=== PATIENT | female | born 1970 | race Two or more races ===

== ENCOUNTER 2021-07-18 11:38 | Emergency (ER) | payer SELFPAY ==
[~2021-07-18] VITALS: Ht 160 cm; Wt 64.5 kg
--- NOTE | 2021-07-18 12:51 | PHYS DOC ---
Past Medical History Past Medical History: No Pertinent History Past Surgical History: No Surgical History Smoking Status: Never Smoker Alcohol Use: None Drug Use: None General Adult EDM: Chief Complaint: ABDOMINAL PAIN HPI: HPI: Patient is a 51-year-old female who presents today with epigastric pain. Booker gonzales states that over a year she has been having on and off epigastric pain that radiates to her back, she states that she has not had it evaluated by anyone, she said she went to work today and had extreme pain with nausea she said she was unable to vomit, she presents here to the emergency department for further evaluation and management. Patient denies chest pain, shortness of breath, fever chills, dysuria, urinary frequency, vaginal discharge or vaginal bleeding. Patient does state that since Friday she has had diarrhea stools associated with her nausea. Review of Systems: Review of Systems: Constitutional: Denies fever or chills. [] Eyes: Denies change in visual acuity. [] HENT: Denies nasal congestion or sore throat. [] Respiratory: Denies cough or shortness of breath. [] Cardiovascular: Denies chest pain or edema. [] GI: abdominal pain, nausea, diarrhea DENIES vomiting, bloody stools[] : Denies dysuria. [] Musculoskeletal: Denies back pain or joint pain. [] Integument: Denies rash. [] Neurologic: Denies headache, focal weakness or sensory changes. [] Endocrine: Denies polyuria or polydipsia. [] Lymphatic: Denies swollen glands. [] Psychiatric: Denies depression or anxiety. [] Heart Score: C/O Chest Pain: No Risk Factors: Risk Factors: DM, Current or recent (<one month) smoker, HTN, HLP, family history of CAD, obesity. Risk Scores: Score 0 - 3: 2.5% MACE over next 6 weeks - Discharge Home Score 4 - 6: 20.3% MACE over next 6 weeks - Admit for Clinical Observation Score 7 - 10: 72.7% MACE over next 6 weeks - Early Invasive Strategies Current Medications: Current Medications Medications (Trade) Dose Ordered Sig/Mauricio Start Time Stop Time Status Last Admin Dose Admin Famotidine (Pepcid Vial) 20 mg 1X ONCE 07/18/21 12:45 07/18/21 12:46 UNV Ketorolac Tromethamine (Toradol 15mg Vial) 15 mg 1X ONCE 07/18/21 12:45 07/18/21 12:46 UNV Ondansetron HCl (Zofran) 4 mg 1X ONCE 07/18/21 12:45 07/18/21 12:46 UNV Sodium Chloride 1,000 ml @ 999 mls/hr 1X ONCE 07/18/21 12:45 07/18/21 13:45 UNV Allergies: Allergies: Allergies Coded Allergies Type Severity Reaction Last Updated Verified Penicillins Allergy Intermediate unknown 07/18/21 Yes Physical Exam: PE: Constitutional: Well developed, well nourished, no acute distress, non-toxic appearance. [] HENT: Normocephalic, atraumatic, bilateral external ears normal, oropharynx moist, no oral exudates, nose normal. [] Eyes: PERRLA, EOMI, conjunctiva normal, no discharge. [] Neck: Normal range of motion, no tenderness, supple, no stridor. [] Cardiovascular:Heart rate regular rhythm, no murmur [] Lungs & Thorax: Bilateral breath sounds clear to auscultation [] Abdomen: Bowel sounds normal, soft, epigastric tenderness noted with palpation, no pulsatile masses or masses noted Skin: Warm, dry, no erythema, no rash. [] Back: No tenderness, no CVA tenderness. [] Extremities: No tenderness, no cyanosis, no clubbing, ROM intact, no edema. [] Neurologic: Alert and oriented X 3, normal motor function, normal sensory fu nction, no focal deficits noted. [] Psychologic: Affect normal, judgement normal, mood normal. [] Current Patient Data: Labs: Laboratory Tests Test 07/18/21 12:21 07/18/21 12:25 Bedside Urine HCG, Qualitative Hcg negative White Blood Count 5.9 x10^3/uL Red Blood Count 5.26 x10^6/uL Hemoglobin 14.7 g/dL Hematocrit 44.3 % Mean Corpuscular Volume 84 fL Mean Corpuscular Hemoglobin 28 pg Mean Corpuscular Hemoglobin Concent 33 g/dL Red Cell Distribution Width 15.5 % Platelet Count 273 x10^3/uL Neutrophils (%) (Auto) 68 % Lymphocytes (%) (Auto) 19 % Monocytes (%) (Auto) 13 % Eosinophils (%) (Auto) 1 % Basophils (%) (Auto) 0 % Neutrophils # (Auto) 4.0 x10^3/uL Lymphocytes # (Auto) 1.1 x10^3/uL Monocytes # (Auto) 0.7 x10^3/uL Eosinophils # (Auto) 0.1 x10^3/uL Basophils # (Auto) 0.0 x10^3/uL Urine Collection Type Unknown Urine Color (Auto) Light yellow Urine Turbidity Clear Urine pH (Auto) 5.0 Urine Specific Whitmore 1.026 Urine Protein (Auto) Negative mg/dL Urine Glucose (Auto)(UA) Negative mg/dL Urine Ketones (Auto) Negative mg/dL Urine Blood (Auto) Trace Urine Nitrite Negative Urine Bilirubin (Auto) Negative Urine Urobilinogen (Auto) Normal mg/dL Urine Leukocyte Esterase (Auto) Negative Urine RBC Occ /HPF Urine WBC 1-4 /HPF Urine Squamous Epithelial Cells Mod /LPF Urine Bacteria Many /HPF Urine Mucus Marked /LPF Sodium Level 139 mmol/L Potassium Level 4.3 mmol/L Chloride Level 105 mmol/L Carbon Dioxide Level 25 mmol/L Anion Gap 9 Blood Urea Nitrogen 19 mg/dL Creatinine 0.8 mg/dL Estimated GFR (Cockcroft-Gault) 75.6 BUN/Creatinine Ratio 24 Glucose Level 90 mg/dL Calcium Level 9.0 mg/dL Total Bilirubin 0.4 mg/dL Aspartate Amino Transf (AST/SGOT) 26 U/L Alanine Aminotransferase (ALT/SGPT) 37 U/L Alkaline Phosphatase 99 U/L Total Protein 8.2 g/dL Albumin 4.1 g/dL Albumin/Globulin Ratio 1.0 Lipase 74 U/L Current Medications Medications (Trade) Dose Ordered Sig/Mauricio Route PRN Reason Start Time Stop Time Status Last Admin Dose Admin Sodium Chloride 1,000 ml @ 999 mls/hr 1X ONCE IV 07/18/21 13:00 07/18/21 14:00 DC 07/18/21 13:03 Ketorolac Tromethamine (Toradol 15mg Vial) 15 mg 1X ONCE IVP 07/18/21 13:00 07/18/21 13:01 DC 07/18/21 13:03 Ondansetron HCl (Zofran) 4 mg 1X ONCE IVP 07/18/21 13:00 07/18/21 13:01 DC 07/18/21 13:03 Famotidine (Pepcid Vial) 20 mg 1X ONCE IVP 07/18/21 13:00 07/18/21 13:01 DC 07/18/21 13:04 Laboratory Tests Test 07/18/21 12:21 POC Urine HCG, Qualitative Hcg negative (Negative) Vital Signs: Vital Signs Date Time Temp Pulse Resp B/P (MAP) Pulse Ox O2 Delivery O2 Flow Rate FiO2 07/18/21 11:53 98.7 97 16 173/72 (105) 97 Room Air 98.7 Vital Signs Date Time Temp Pulse Resp B/P (MAP) Pulse Ox O2 Delivery O2 Flow Rate FiO2 07/18/21 11:53 98.7 97 16 173/72 (105) 97 Room Air 98.7 EKG: EKG: [] Radiology/Procedures: Radiology/Procedures: REASON: EPIGASTRIC PAIN PROCEDURE: ABDOMEN LTD INDICATION: Reason: EPIGASTRIC PAIN / Spl. Instructions: / History: COMPARISON: None. TECHNIQUE: Grayscale and color ultrasound images obtained through the abdomen. FINDINGS: Pancreas: Obscured by bowel gas Liver: echogenic Gallbladder: Partially contracted. Definite stones not seen. Common Bile Duct: Not dilated. Right Kidney: No hydronephrosis. Aorta/IVC: Limited visualization secondary to overlying bowel gas. IMPRESSION: * Liver is echogenic. Nonspecific but can be seen with fatty infiltration. * No biliary ductal dilatation. Electronically signed by: Jose R Adams MD (07/18/2021 1:54 PM) [id number][] REASON: epigastric pain PROCEDURE: CT ABD PELV W/ IV CONTRST ONLY Exam: CT of abdomen and pelvis with contrast INDICATION: Epigastric pain TECHNIQUE: Sequential axial images through the abdomen and pelvis obtained following the administration of 75 mL of Isovue-370 IV contrast. Sagittal and coronal reformatted images were reconstructed from the axial data and reviewed. Exposure: One or more of the following in the visualized dose reduction techniques were utilized for this examination: 1. Automated exposure control 2. Adjustment of the MA and/or KV according to patient size 3. Use of iterative of reconstructive technique Comparisons: Ultrasound same day FINDINGS: Heart size is normal. No pericardial effusion. Visualized lung bases are clear. No pleural effusion. Liver, spleen, pancreas, gallbladder and adrenals are unremarkable. Kidneys demonstrate symmetric enhancement. No perinephric inflammation or hydronephrosis. No renal or ureteral calculi are identified. Bladder is partially distended and not well evaluated. Uterus is nonenlarged. No abnormal adnexal mass. Large and small bowel are unremarkable. Appendix is normal. No free intra- abdominal air or fluid. No obstruction. Abdominal aorta has normal course and caliber. No enlarged intra-abdominal lymph nodes are identified. No suspicious osseous lesions or acute fractures. IMPRESSION: No acute process identified within the abdomen or pelvis. Electronically signed by: Licha Thayer MD (07/18/2021 3:13 PM) [facility] Course & Med Decision Making: Course & Med Decision Making Pertinent Labs and Imaging studies reviewed. (See chart for details) [[id number] I reviewed laboratory and radiological results with the patient and her significant other at the bedside, I did inform him there was no acute findings on any of the exams done today, she will need to follow-up with her primary care physician or one of the local resource clinics for further evaluation and management of this abdominal pain I did tell her that this could be related to her gallbladder but it may take further testing through a gastrointestinal specialist for further evaluation and management. Patient is advised to take [id number] Pepcid as labeled directed to help with reflux issues that she is having, she is also will be given a list of foods to avoid that may activate her reflux symptoms. Patient and family member verbalized understanding this and are agreeable to the plan of care. Demarcus Disclaimer: Demarcus Disclaimer: This electronic medical record was generated, in whole or in part, using a voice recognition dictation system. Departure Departure Impression: Primary Impression: Epigastric abdominal pain Disposition: HOME / SELF CARE / HOMELESS Condition: STABLE Referrals: NO PCP (PCP) Patient Instructions: Abdominal Pain, Diet for Gastroesophageal Reflux Disease, Adult Additional Instructions: I would follow a gastric acid reduced diet that is listed in your discharge instructions [id number] Pepcid label directed to help with reflux and nausea Follow-up with your primary care physician or one of the listed clinics below for further evaluation and management of your abdominal pain Return to the emergency department should you develop a fever, your pain localizes to the right lower quadrant, or you are unable to keep any by mouth fluids or food down. [facility] [address] [place], [place] [id number] [facility] [address] [place] [address] [facility] [address] [place] [address] [facility] [address] [place] [address] [facility] [address] [place] [address] [address] [place] [address] [address] [address] [place] [address] [facility] [address] [place] [address] [facility] [address] [place] [address] [facility] [address] [place] [address] JOSÉ MIGUEL SAM COMPENSATION ANALYST Jul 18, 2021 12:51
[2021-07-18 12:59] LABS: BASO % 0 % (0-3); EOS # 0.1 x10^3/uL (0.0-0.7); EOS % 1 % (0-3); HEMATOCRIT 44.3 % (36.0-47.0); HEMOGLOBIN 14.7 g/dL (12.0-15.5); LYMPH # 1.1 x10^3/uL (1.0-4.8); LYMPH % 19 % (24-48); MEAN CORPUSCULAR HEMOGLOBIN 28 pg (25-35); MEAN CORPUSCULAR HGB CONC 33 g/dL (31-37); MEAN CORPUSCULAR VOLUME 84 fL (79-100); MONO # 0.7 x10^3/uL (0.0-1.1); MONO % 13 % (0-9); NEUT % 68 % (31-73); PLATELET COUNT 273 x10^3/uL (140-400); RED BLOOD COUNT 5.26 x10^6/uL (3.50-5.40); RED CELL DISTRIBUTION WIDTH 15.5 % (11.5-14.5); WHITE BLOOD COUNT 5.9 x10^3/uL (4.0-11.0)
[2021-07-18] MEDS ORDERED: FAMOTIDINE 20 MG/2 ML VIAL IVP ONE (13:00)
[2021-07-18] MEDS ORDERED: IV NORMAL SALINE 1000ML BAG 1,000 ML IV ONE (13:00)
[2021-07-18] MEDS ORDERED: KETOROLAC 15 MG/ML VIAL. IVP ONE (13:00)
[2021-07-18] MEDS ORDERED: ONDANSETRON PF 4 MG/2 ML VIAL. IVP ONE (13:00)
[2021-07-18 13:03] LABS: CREATININE 0.8 mg/dL (0.6-1.0); GFR 75.6; POTASSIUM 4.3 mmol/L (3.5-5.1)
[2021-07-18 13:09] LABS: ALBUMIN 4.1 g/dL (3.4-5.0); TOTAL BILIRUBIN 0.4 mg/dL (0.2-1.0); TOTAL PROTEIN 8.2 g/dL (6.4-8.2)
[2021-07-18 13:18] LABS: BACTERIA,URINE MANY /HPF (0-FEW); RBC,URINE OCC /HPF (0-2)
--- NOTE | 2021-07-18 13:57 | RAD ---
INDICATION: Reason: EPIGASTRIC PAIN / Spl. Instructions: / History: COMPARISON: None. TECHNIQUE: Grayscale and color ultrasound images obtained through the abdomen. FINDINGS: Pancreas: Obscured by bowel gas Liver: echogenic Gallbladder: Partially contracted. Definite stones not seen. Common Bile Duct: Not dilated. Right Kidney: No hydronephrosis. Aorta/IVC: Limited visualization secondary to overlying bowel gas. IMPRESSION: * Liver is echogenic. Nonspecific but can be seen with fatty infiltration. * No biliary ductal dilatation. Electronically signed by: Jose R Adams MD (07/18/2021 1:54 PM) [id number]
[2021-07-18] MEDS ORDERED: IOHEXOL 300 MG/ML 100ML VIAL. ONE (14:24)
[2021-07-18] MEDS ORDERED: IOHEXOL 300 MG/ML 100ML VIAL. IV ONE (14:30)
--- NOTE | 2021-07-18 15:15 | RAD ---
Exam: CT of abdomen and pelvis with contrast INDICATION: Epigastric pain TECHNIQUE: Sequential axial images through the abdomen and pelvis obtained following the administrati on of 75 mL of Isovue-370 IV contrast. Sagittal and coronal reformatted images were reconstructed fro m the axial data and reviewed. Exposure: One or more of the following in the visualized dose reduction techniques were utilized for this examination: 1. Automated exposure control 2. Adjustment of the MA and/or KV according to patient size 3. Use of iterative of reconstructive technique Comparisons: Ultrasound same day FINDINGS: Heart size is normal. No pericardial effusion. Visualized lung bases are clear. No pleural effusion. Liver, spleen, pancreas, gallbladder and adrenals are unremarkable. Kidneys demonstrate symmetric enhancement. No perinephric inflammation or hydronephrosis. No renal or ureteral calculi are identified. Bladder is partially distended and not well evaluated. Uterus is nonenlarged. No abnormal adnexal mas s. Large and small bowel are unremarkable. Appendix is normal. No free intra-abdominal air or fluid. No obstruction. Abdominal aorta has normal course and caliber. No enlarged intra-abdominal lymph nodes are identified. No suspicious osseous lesions or acute fractures. IMPRESSION: No acute process identified within the abdomen or pelvis. Electronically signed by: Licha Thayer MD (07/18/2021 3:13 PM) [facility]
[2021-07-18] MEDS ORDERED: LIDO:MAALOX 1:1 20 ML SINGLE DOSE. SWSW ONE (15:45)
[2021-07-18 15:58] VITALS: BP 125/59
== END 2021-07-18 16:40 | disposition home or self-care (01) ==
LOC: ER 11:38
DX: R10.13 Epigastric pain (principal)
CPT/HCPCS: 36415; 74177; 76705; 80053; 81001; 81025; 83690; 85025; 87077; 87086; 87186; 96361; 96374; 96375; 99285; J1885; J2405; J3490; J7030; Q9967